=== PATIENT | male | born 1985 | race Caucasian/White ===

== ENCOUNTER 2024-06-01 11:09 | Emergency (ER) | payer OTHER, SELFPAY ==
[2024-06-01 11:12] VITALS: BP 151/93
--- NOTE | 2024-06-01 11:47 | ED.GENMED ---
History of Present Illness
<Michelle Cardenas BUYER PLANNER - Last Filed: 06/01/24 17:49>
General
Chief Complaint: Abdominal Pain
Source: patient
Exam Limitations: none
Time Seen by Provider: 06/01/24 11:35
Nursing documentation reviewed up to this point in time: agreed with
History of Present Illness
History of Present Illness:
39 yo male with hx kidney stones, presents for 'weird vibrating sensation' up under right lower ribs. 'It feels like a cat purring or a cell phone vibrating.' Had three 15 minute episodes 2 days ago, 3 45 minute episodes yesterday and today it has
been there all morning and is non stop. No actual pain but feels his overlying abdominal muscles are 'tight.' No pain with deep breaths. Kole fever/ n/v/d/c. Denies trouble breathing Denies UTI symptoms.
Past History
<Michelle Cardenas [employer]NER - Last Filed: 06/01/24 17:49>
Past History
ED Past Medical History: Other (Kidney stone)
ED Past Surgical History: Urological (removal ureteral stone) and Other (wisdom teeth)
Social History
Tobacco: Non-smoker
Alcohol: None
Drug: None
Personal:
Living: with family
Employment: Employed ([employer], works from home)
Review of Systems
<Michelle Cardenas BU[employer]NER - Last Filed: 06/01/24 17:49>
Review of Systems
Allergies reviewed?: Yes
All Other Systems: ROS reviewed and negative except as documented in HPI and ROS
Constitutional: Denies fever
Respiratory: Denies trouble breathing
Cardiac: Denies chest pain
ABD/GI: Reports other (weird vibrating sensation RUQ under rib cage); Denies abdominal pain, nausea, vomiting, diarrhea, constipated or anorexia
: Reports no symptoms
Musculoskeletal: Reports no symptoms
Skin: Reports no symptoms
Neurological: Reports no symptoms
Phy Exam
<Michelle Cardenas, BU[employer]ER [employer]NER - Last Filed: 06/01/24 17:49>
Physical Exam
Physical Exam:
GENERAL: No acute distress. A&Ox3.
CONSTITUTIONAL: Afebrile.
EYES: clear, conjunctivae normal
ENMT: moist mucus membranes, Pharynx nl
RESPIRATORY: Regular respirations, nonlabored, lungs clear.
CARDIOVASCULAR: Regular rate and rhythm, no murmurs, no rubs.
GI: Soft, mild tenderness RUQ when pushing up under ribcage. Normal BS
MUSCULOSKELETAL: Moves with ease. Well perfused.
SKIN: Warm, dry, pink
PSYCH: Normal mood and affect. Well kept, interactive and appropriate
NEUROLOGIC: Awake, alert and oriented. No focal neurological deficits
Course
<Michelle Cardenas, BU[employer]ER [employer]NER - Last Filed: 06/01/24 17:49>
Orders/Labs/Results
Orders:
Orders
06/01/24 11:46
US Abdomen Complete/Upper Urgent
Comment:
Reason For Exam: Pain up under right lower ribs
06/01/24 12:00
Complete Blood Count/With Diff Urgent
Comprehensive Metabolic Panel Urgent
Lipase Urgent
Urinalysis Reflex To Culture Urgent
Date Specimen was Collected: 06/01/24
Time Specimen was Collected: 11:52
06/01/24 13:58
CR Chest - 2 Views Urgent
Comment:
Reason For Exam: 'gurgling sound and feeling' RUQ
06/01/24 12:00
06/01/24 12:00
Vital Signs
Initial and Last Documented VS:
Initial Vital Signs
Temp Pulse Resp BP Pulse Ox
98.6 F 72 20 151/93 100
06/01/24 11:12 06/01/24 11:12 06/01/24 11:12 06/01/24 11:12 06/01/24 11:12
Last Documented Vital Signs
Temp Pulse Resp BP Pulse Ox
98.6 F 86 14 123/82 100
06/01/24 11:12 06/01/24 14:00 06/01/24 14:00 06/01/24 14:00 06/01/24 14:00
Cloth Grader consulted with Physician
Cloth Grader consulted with physician?: Yes
Name of Physician Consulted: See
<Ramírez Cui MD - Last Filed: 06/01/24 12:03>
Orders/Labs/Results
Orders:
Orders
06/01/24 11:46
US Abdomen Complete/Upper Urgent
Comment:
Reason For Exam: Pain up under right lower ribs
06/01/24 12:00
Complete Blood Count/With Diff Urgent
Comprehensive Metabolic Panel Urgent
Lipase Urgent
Urinalysis Reflex To Culture Urgent
Date Specimen was Collected: 06/01/24
Time Specimen was Collected: 11:52
06/01/24 13:58
CR Chest - 2 Views Urgent
Comment:
Reason For Exam: 'gurgling sound and feeling' RUQ
06/01/24 12:00
06/01/24 12:00
Vital Signs
Initial and Last Documented VS:
Initial Vital Signs
Temp Pulse Resp BP Pulse Ox
98.6 F 72 20 151/93 100
06/01/24 11:12 06/01/24 11:12 06/01/24 11:12 06/01/24 11:12 06/01/24 11:12
Last Documented Vital Signs
Temp Pulse Resp BP Pulse Ox
98.6 F 86 14 123/82 100
06/01/24 11:12 06/01/24 14:00 06/01/24 14:00 06/01/24 14:00 06/01/24 14:00
<Michelle Cardenas [employer] - Last Filed: 06/01/24 17:49>
MDM/Problems Addressed
Differential Diagnosis Includes:
biliary colic, kidney stone, muscle spasms
MDM/Problems Addressed:
39 yo male with hx kidney stones, presents for 'weird vibrating sensation' up under right lower ribs. 'It feels like a cat purring or a cell phone vibrating.' Had three 15 minute episodes 2 days ago, 3 45 minute episodes yesterday and today it has
been there all morning and is non stop. No actual pain but feels his overlying abdominal muscles are 'tight.' No pain with deep breaths. Kole fever/ n/v/d/c. Denies trouble breathing Denies UTI symptoms.
Dr. Cui in to evaluate.
12:45 p.m.
CBC normal
CMP normal
Lipase normal
U/A neg
Abdominal US radiology report read: IMPRESSION:
Normal appearance of the gallbladder with no evidence for biliary ductal dilation.
Spleen is difficult to visualize in the left upper quadrant, grossly within normal limits.
2 mm echogenic focus in the left mid kidney, with differential considerations of specular reflection and tiny nephrolith. No evidence for pelvicalyceal dilation of either kidney.
2:15 p.m.
CXR NAD
Nothing in w/u here to explain symptoms
Pt reassured, stable for discharge
<Michelle Cardenas [employer] - Last Filed: 06/01/24 17:49>
*Critical Care Note
Total Time (30-74mins, 75-104mins- exclusive of procedures): Not Applicable
ED Attending Note
<Michelle Cardenas, BU[employer]ER [employer]NER - Last Filed: 06/01/24 17:49>
-
Portions of this chart may have been created with voice recognition software.� Occasional wrong word or��sound alike� substitutions may have occurred due to the inherent limitations of voice recognition software.
<Ramírez Cui MD - Last Filed: 06/01/24 12:03>
ED Attending Note
Patient seen and examined by attending physician: Yes
I performed the substantive portion of visit, reviewed & personally made and approve the management plan that is documented in note by myself or JASON.: Yes
ED Attending Note:
Healthy 39-year-old male noted a vibratory sensation in his upper right abdomen 2 nights ago while lying on his abdomen trying to sleep. He has had a few episodes since then. Currently asymptomatic. No flank or back pain. No chest pain shortness
of breath. No change in bowels. No urinary symptoms. Has a history of kidney stones and now states this feels slightly like this although not exactly.
On exam patient is nontoxic in no distress. Lungs are clear and equal. Heart regular rate and rhythm. Abdomen is soft and nontender. No liver or spleen no rebound or guarding. Some very mild tenderness deep under the right lateral rib cage
towards the lateral aspect of the liver.
Impression healthy 39-year-old male with a unusual vibratory intermittent sensation. Based on location would consider gallbladder. Possibly bowel gas at the hepatic flexure. Doubt kidney stone. Nothing clinically to support infectious issue. No
pleurisy or shortness of breath. Doubt an issue at the base of the lung. For completeness ultrasound chest x-ray and labs will be checked.
Discharge Plan
Departure
Patient Disposition: Home (Routine Discharge)
Date of Disposition: 06/01/24
Time of Disposition: 14:23
Patient with high blood pressure during this ER visit?: No
Condition: Good
Discharge Problem:
Abdominal pain
Instructions: Abdominal Pain
Prescriptions:
No Action
ciprofloxacin HCl 250 mg tablet
250 mg PO BID 7 Days Qty: 14 0RF
Referrals:
Ramírez Riley, DO [Family Provider] - As needed
Activity Restrictions/Additional Instructions:
As we discussed, there is nothing abnormal or worrisome in your workup here today
Interventions
Interventions:
*Risk Screen - Suicide Last Done: 06/01/24 11:55
*General Assessment Last Done: 06/01/24 11:55
*Neglect/Abuse Screening Last Done: 06/01/24 11:55
ED- Fall Risk Assessment Last Done: 06/01/24 11:55
*ED COVID-19 Vaccine History Last Done: 06/01/24 11:55
*Nursing Disposition Last Done: 06/01/24 14:55
AS-Vhktem-Gfkteztivz Assessment Last Done: 06/01/24 11:55
Discharge Date and Time
Discharge Date/Time: 06/01/24 14:55
Print Language: SAUDI ARABIAN
[2024-06-01 11:55] VITALS: BP 115/84; BMI 25.0
[2024-06-01 12:00] VITALS: BP 115/89
[2024-06-01 12:11] LABS: Urine Albumin Negative (Neg - Trace); Urine Bilirubin Negative (Negative); Urine Character Clear (Clear); Urine Color Yellow; Urine Glucose Negative (Negative); Urine Ketone Negative (Negative); Urine Leukocyte Negative (Negative); Urine Nitrite Negative (Negative); Urine Occult Blood Negative (Negative); Urine Specific Gravity 1.005 (<1.030); Urine Urobilinogen Negative (Neg - 1+)
[2024-06-01 12:14] LABS: % Eosinophils 0.9 % (0-6); % Immature Granulocytes 0.2 % (0-0.5); % Lymphocytes 35.5 % (20.5-51.1); % Monocytes 7.6 % (1.7-9.3); % Neutrophils 54.8 % (42.2-75.2); Absolute Basophils 0.1 10^3/uL (0-0.2); Absolute Eosinophils 0.1 10^3/uL (0-0.7); Absolute Lymphocytes 2.1 10^3/uL (1.2-3.4); Absolute Monocytes 0.4 10^3/uL (0.1-0.6); Absolute Neutrophils 3.2 10^3/uL (1.4-6.5); Hematocrit 40.3 % (39.0-52.0); Hemoglobin 13.8 g/dL (13.0-18.0); Mean Corp Hgb Conc. 34.2 g/dL (33.0-37.0); Mean Corpuscular Hgb 29.1 pg (27.0-31.0); Mean Corpuscular Volume 84.8 fL (80.0-94.0); Mean Platelet Volume 9.4 fL (7.4-10.4); Nucleated Red Blood Cells % 0 % (-); Platelet Count 298 10^3/uL (130-400); Red Blood Cell Count 4.75 10^6/uL (4.70-6.10); Red Cell Dist. Width 12.9 % (11.5-14.5); White Blood Cell Count 5.8 10^3/uL (4.8-10.8)
[2024-06-01 12:23] LABS: ALT (SGPT) 20 U/L (0-50); AST (SGOT) 21 U/L (17-59); Albumin 4.9 g/dl (3.5-5.0); Alkaline Phosphatase 56 U/L (38-126); Blood Urea Nitrogen 18 mg/dl (9-20); Calcium 9.9 mg/dl (8.4-10.2); Carbon Dioxide 28 mmol/L (22-30); Chloride 103 mmol/L (98-107); Estimated Creatinine Clearance 124 ml/min; Glucose 92 mg/dl (70-99); Lipase 143 U/L (23-300); Potassium 4.5 mmol/L (3.5-5.1); Sodium 141 mmol/L (135-145); Total Bilirubin 0.8 mg/dl (0.2-1.3); Total Protein 7.8 g/dl (6.3-8.2); eGFR > 60.00
[2024-06-01 13:05] VITALS: BP 119/80
--- NOTE | 2024-06-01 13:58 | EDRN ---
Cherelle MCCRARY in room w/ pt at this time. Pt is pending discharge post CXR results.
[2024-06-01 14:00] VITALS: BP 123/82
== END 2024-06-01 14:55 | disposition home or self-care (01) ==
LOC: EMR 11:09
PROVIDERS: Registered Nurse; EMERGENCY PHYSICIAN Emergency Medicine; FAMILY PHYSICIAN Family Medicine
DX: R10.11 Right upper quadrant pain (principal)
CPT/HCPCS: 99285; 71046; 76700; 80053; 81003; 83690; 85025